=== PATIENT | female | born 1995 | race Caucasian/White ===

== ENCOUNTER 2023-04-06 19:48 | Emergency (ER) | payer MEDICAID ==
[~2023-04-06] VITALS: Ht 165.1 cm; Wt 103.4 kg
[2023-04-06 19:52] VITALS: BP 101/67
[2023-04-06] MEDS ORDERED: NACL 0.9% 1,000 ML IV ONE (20:10)
[2023-04-06] MEDS ORDERED: ONDANSETRON 4 MG/2 ML VIAL IVP ONE (20:10)
[2023-04-06 20:20] LABS: BILIRUBIN,URINE 1+ (NEGATIVE); BLOOD, URINE NEGATIVE (NEGATIVE); LEUKOCYTE ESTERASE ,URINE NEGATIVE (NEGATIVE); NITRITE, URINE POSITIVE (NEGATIVE); PH,URINE 6.5 (5.0-9.0); UGLUCOSE NEGATIVE (NEGATIVE)
--- NOTE | 2023-04-06 20:22 | NUR ---
PT IN BED 8
--- NOTE | 2023-04-06 20:22 | NUR ---
20G IV CATH PLACED IN L AC. LABS OBTAINED AND SENT
[2023-04-06 20:24] LABS: APPEARANCE,URINE SLIGHTLY CLOUDY (CLEAR); COLOR,URINE ORANGE (YELLOW)
--- NOTE | 2023-04-06 20:25 | NUR ---
L&D RN AT BEDSIDE FOR T
--- NOTE | 2023-04-06 20:27 | NUR ---
L&D NURSE OBTAINING FHT. PT TOLERATING PROCEDURE. NO DISTRESS NOTED.
[2023-04-06 20:32] LABS: BASOPHILS % (AUTO) 0.3 % (0.0-2.0); EOSINOPHILS % (AUTO) 0.3 % (0.0-4.0); HEMATOCRIT 29.3 % (36-48); HEMOGLOBIN 10.2 g/dL (12.0-16.0); LYMPHOCYTES # (AUTO) 1.6 K/uL (2.5-16.5); LYMPHOCYTES % (AUTO) 15.2 % (20.5-51.1); MEAN CORPUSCULAR HEMOGLOBIN 30 pg (27-31); MEAN CORPUSCULAR HGB CONC 35 g/dL (33-37); MEAN CORPUSCULAR VOLUME 84.7 fL (80-94); MONOCYTES # (AUTO) 0.8 K/uL (0.8-1.0); MONOCYTES % (AUTO) 7.7 % (1.7-9.3); NEUTROPHILS # (AUTO) 8.2 K/uL (1.8-7.7); NEUTROPHILS % (AUTO) 76.5 % (42.2-75.2); PLATELET COUNT (AUTO) 241 K/uL (140-450); RED BLOOD CELL COUNT(AUTO) 3.46 MIL/uL (4.20-5.40); RED CELL DISTRIBUTION WIDTH 13.2 % (11.6-13.7); WHITE BLOOD COUNT (AUTO) 10.7 K/uL (4.8-10.8)
--- NOTE | 2023-04-06 20:42 | NUR ---
NSR=[id number]. IVF INFUSING WELL. PT MEDICATED ORDERED.
[2023-04-06 21:03] LABS: ALBUMIN 2.7 g/dL (3.4-5.0); ANION GAP 15.9 (8-16); CARBON DIOXIDE 19.3 mmol/L (21-32); CREATININE 0.6 mg/dL (0.6-1.3); POTASSIUM 3.2 mmol/L (3.5-5.1); TOTAL BILIRUBIN 0.6 mg/dL (0.0-1.0)
--- NOTE | 2023-04-06 22:11 | NUR ---
PT SITTING UP IN BED. NASAL CONGESTION NOTED. PT BLOWING NOSE. NO DISTRESS NOTED.
[2023-04-06] MEDS ORDERED: POTASSIUM CHLORIDE 10 MEQ TABER PO ONE (22:25)
[2023-04-06] MEDS ORDERED: NITR100C7 PO (22:38)
[2023-04-06] MEDS ORDERED: LORA10TA19 PO (22:38)
[2023-04-06 22:54] VITALS: BP 119/61
--- NOTE | 2023-04-06 22:56 | NUR ---
PT MEDICATED WITH [facility]. H/L DC'D INTACT. PT TO F/U WITH [facility]. INSTRUCTIONS WERE REVIEWED FOR URI AND UTI. RX PROVIDED FOR ROMA CHAPIN. PT AKNOWLEDGE UNDERSTANDING INSTRUCTIONS. PT INSTRUCTED TO RETURN TO GO TO HER NEAREST ER, IF HER CONDTION WORSENS. PT AMBULATED OUT WITH STEADY GAIT IN STABLE CONDITION. TO TAKE PT HOME.
== END 2023-04-06 22:56 | disposition home or self-care (01) ==
LOC: MED 19:48
DX: O21.8 Other vomiting complicating pregnancy (principal); O99.513 Diseases of the respiratory system complicating pregnancy, third trimester; J06.9 Acute upper respiratory infection, unspecified; O23.43 Unspecified infection of urinary tract in pregnancy, third trimester; O99.283 Endocrine, nutritional and metabolic diseases complicating pregnancy, third trimester; E87.6 Hypokalemia; J45.909 Unspecified asthma, uncomplicated; O13.3 Gestational [pregnancy-induced] hypertension without significant proteinuria, third trimester; Z3A.32 32 weeks gestation of pregnancy; Z98.890 Other specified postprocedural states; Z79.899 Other long term (current) drug therapy; Z79.2 Long term (current) use of antibiotics
CPT/HCPCS: 36415; 80053; 81001; 81025; 83690; 85025; 87086; 96361; 96374; 99285; J2405; J7030

== ENCOUNTER 2023-07-08 02:53 | Emergency (ER) | payer MEDICAID ==
[~2023-07-08] VITALS: Ht 165.1 cm; Wt 99.8 kg
[~2023-07-08 02:53] MED LIST: LORA10TA19 PO; NITR100C7 PO
[2023-07-08 03:02] VITALS: BP 95/61; PULSE 61; RESP 19; TEMP 98.5; O2SAT 100
[2023-07-08] MEDS ORDERED: ONDANSETRON 4 MG/2 ML VIAL IVP ONE (03:30)
[2023-07-08] MEDS ORDERED: MORPHINE SULFATE 4 MG/ML SYR IVP ONE (03:30)
[2023-07-08 04:00] LABS: BASOPHILS % (AUTO) 0.5 % (0.0-2.0); EOSINOPHILS % (AUTO) 0.5 % (0.0-4.0); HEMATOCRIT 29.9 % (36-48); HEMOGLOBIN 9.5 g/dL (12.0-16.0); LYMPHOCYTES # (AUTO) 2.2 K/uL (2.5-16.5); LYMPHOCYTES % (AUTO) 35.9 % (20.5-51.1); MEAN CORPUSCULAR HEMOGLOBIN 24 pg (27-31); MEAN CORPUSCULAR HGB CONC 32 g/dL (33-37); MEAN CORPUSCULAR VOLUME 76.2 fL (80-94); MONOCYTES # (AUTO) 0.4 K/uL (0.8-1.0); NEUTROPHILS # (AUTO) 3.4 K/uL (1.8-7.7); NEUTROPHILS % (AUTO) 56.1 % (42.2-75.2); PLATELET COUNT (AUTO) 245 K/uL (140-450); RED BLOOD CELL COUNT(AUTO) 3.92 MIL/uL (4.20-5.40); RED CELL DISTRIBUTION WIDTH 17.1 % (11.6-13.7)
[2023-07-08 04:16] LABS: ALBUMIN 3.6 g/dL (3.4-5.0); ANION GAP 15.2 (8-16); CALCIUM 8.1 mg/dL (8.5-10.1); CARBON DIOXIDE 24.4 mmol/L (21-32); CREATININE 0.6 mg/dL (0.6-1.3); POTASSIUM 3.6 mmol/L (3.5-5.1); TOTAL BILIRUBIN 0.2 mg/dL (0.0-1.0)
[2023-07-08 05:41] LABS: APPEARANCE,URINE HAZY (CLEAR); BILIRUBIN,URINE NEGATIVE (NEGATIVE); BLOOD, URINE NEGATIVE (NEGATIVE); COLOR,URINE YELLOW (YELLOW); LEUKOCYTE ESTERASE ,URINE NEGATIVE (NEGATIVE); NITRITE, URINE POSITIVE (NEGATIVE); PH,URINE 6.5 (5.0-9.0); PROTEIN,URINE NEGATIVE (NEGATIVE); UGLUCOSE NEGATIVE (NEGATIVE)
[2023-07-08 05:49] LABS: BACTERIA,URINE 4+ /HPF (None Seen); RBC,URINE 0-5 /HPF (0-5); SQUAMOUS EPITHELIAL CELL,UR 4-10 (MOD) /LPF (0-3 (FEW)); WBC,URINE 0-5 /HPF (0-5)
[2023-07-08 06:25] VITALS: BP 106/58; PULSE 58; RESP 17; O2SAT 100
== END 2023-07-08 06:23 | disposition home or self-care (01) ==
LOC: MED 02:53
DX: K80.20 Calculus of gallbladder without cholecystitis without obstruction (principal); R11.2 Nausea with vomiting, unspecified; J45.909 Unspecified asthma, uncomplicated; Z79.899 Other long term (current) drug therapy; Z98.890 Other specified postprocedural states; Z98.84 Bariatric surgery status
CPT/HCPCS: 36415; 76705; 80053; 81001; 82150; 83690; 85025; 87086; 87210; 96374; 96375; 99285; J2270; J2405; Q0092

== ENCOUNTER 2023-07-08 20:06 | Emergency (ER) | payer MEDICAID | END 2023-07-08 20:25 | disposition left against medical advice (07) | LOC: MED 20:06 | DX: R10.9 Unspecified abdominal pain (principal); Z53.21 Procedure and treatment not carried out due to patient leaving prior to being seen by health care provider ==

== ENCOUNTER 2024-01-01 23:59 | Emergency (ER) | payer MEDICAID ==
[~2024-01-01] VITALS: Ht 165.1 cm; Wt 104.3 kg
[2024-01-02] VITALS: BP 120/73; PULSE 55; RESP 15; TEMP 97.9; O2SAT 98
[2024-01-02 00:47] VITALS: O2SAT 100
[2024-01-02 01:34] LABS: BASOPHILS % (AUTO) 0.6 % (0.0-2.0); EOSINOPHILS % (AUTO) 0.5 % (0.0-4.0); HEMATOCRIT 28.1 % (36-48); LYMPHOCYTES # (AUTO) 2.3 K/uL (2.5-16.5); LYMPHOCYTES % (AUTO) 30.7 % (20.5-51.1); MEAN CORPUSCULAR HEMOGLOBIN 24 pg (27-31); MEAN CORPUSCULAR HGB CONC 32 g/dL (33-37); MEAN CORPUSCULAR VOLUME 75.6 fL (80-94); MONOCYTES # (AUTO) 0.5 K/uL (0.8-1.0); MONOCYTES % (AUTO) 7.2 % (1.7-9.3); NEUTROPHILS # (AUTO) 4.6 K/uL (1.8-7.7); PLATELET COUNT (AUTO) 262 K/uL (140-450); RED BLOOD CELL COUNT(AUTO) 3.72 MIL/uL (4.20-5.40); RED CELL DISTRIBUTION WIDTH 15.8 % (11.6-13.7); WHITE BLOOD COUNT (AUTO) 7.5 K/uL (4.8-10.8)
[2024-01-02 01:51] LABS: ALBUMIN 3.4 g/dL (3.4-5.0); ANION GAP 11.5 (8-16); CALCIUM 8.2 mg/dL (8.5-10.1); CARBON DIOXIDE 26.1 mmol/L (21-32); CREATININE 0.7 mg/dL (0.6-1.3); POTASSIUM 3.6 mmol/L (3.5-5.1); TOTAL BILIRUBIN 0.1 mg/dL (0.0-1.0); TOTAL PROTEIN, SERUM 8.1 g/dL (6.4-8.2)
[2024-01-02 01:57] LABS: LACTIC ACID 0.9 mmol/L (0.4-2.0)
[2024-01-02 04:15] VITALS: O2SAT 100
[2024-01-02] MEDS: NACL 0.9% 1,000 ML IV ONE (04:33)
[2024-01-02] MEDS: ONDANSETRON 4 MG/2 ML VIAL IVP ONE (04:34)
[2024-01-02 04:35] VITALS: BP 119/71; PULSE 74; RESP 12; O2SAT 100
[2024-01-02] MEDS: MORPHINE SULFATE 4 MG/ML SYR IVP ONE ×2 (04:41→05:33)
[2024-01-03] MEDS ORDERED: CEPH-588 PO (06:27)
== END 2024-01-02 05:39 | disposition home or self-care (01) ==
LOC: MED 23:59
DX: K80.20 Calculus of gallbladder without cholecystitis without obstruction (principal); J45.909 Unspecified asthma, uncomplicated; I10 Essential (primary) hypertension; Z79.899 Other long term (current) drug therapy
CPT/HCPCS: 36415; 76705; 80053; 83605; 83690; 85025; 87040; 96361; 96374; 96375; 99285; J2270; J2405; J7030

== ENCOUNTER 2024-01-02 20:27 | Emergency (ER) | payer MEDICAID ==
[~2024-01-02] VITALS: Ht 165.1 cm; Wt 104.3 kg
[2024-01-02 21:23] VITALS: BP 109/66; PULSE 86; RESP 22; TEMP 99; O2SAT 100
[2024-01-02 23:06] LABS: BASOPHILS % (AUTO) 0.6 % (0.0-2.0); EOSINOPHILS % (AUTO) 0.7 % (0.0-4.0); HEMOGLOBIN 9.1 g/dL (12.0-16.0); LYMPHOCYTES # (AUTO) 2.8 K/uL (2.5-16.5); LYMPHOCYTES % (AUTO) 42.5 % (20.5-51.1); MEAN CORPUSCULAR HEMOGLOBIN 25 pg (27-31); MEAN CORPUSCULAR HGB CONC 33 g/dL (33-37); MEAN CORPUSCULAR VOLUME 75.6 fL (80-94); MONOCYTES # (AUTO) 0.4 K/uL (0.8-1.0); NEUTROPHILS # (AUTO) 3.3 K/uL (1.8-7.7); NEUTROPHILS % (AUTO) 50.2 % (42.2-75.2); PLATELET COUNT (AUTO) 287 K/uL (140-450); WHITE BLOOD COUNT (AUTO) 6.6 K/uL (4.8-10.8)
[2024-01-02 23:09] VITALS: TEMP 99
[2024-01-02] MEDS: MORPHINE SULFATE 4 MG/ML SYR IVP ONE (23:12)
[2024-01-02 23:20] LABS: ANION GAP 10.3 (8-16); CALCIUM 8.1 mg/dL (8.5-10.1); CARBON DIOXIDE 27.5 mmol/L (21-32); CREATININE 0.6 mg/dL (0.6-1.3); POTASSIUM 3.8 mmol/L (3.5-5.1)
[2024-01-02] MEDS: NACL 0.9% 1,000 ML IV ONE (23:24)
[2024-01-02 23:27] LABS: ALBUMIN 3.5 g/dL (3.4-5.0); TOTAL BILIRUBIN 0.2 mg/dL (0.0-1.0); TOTAL PROTEIN, SERUM 8.5 g/dL (6.4-8.2)
[2024-01-03 00:14] LABS: APPEARANCE,URINE CLEAR (CLEAR); BILIRUBIN,URINE NEGATIVE (NEGATIVE); BLOOD, URINE NEGATIVE (NEGATIVE); COLOR,URINE YELLOW (YELLOW); LEUKOCYTE ESTERASE ,URINE 1+ (NEGATIVE); NITRITE, URINE NEGATIVE (NEGATIVE); PROTEIN,URINE NEGATIVE (NEGATIVE); UGLUCOSE NEGATIVE (NEGATIVE); UROBILINOGEN,URINE 0.2 EU/dL (0.2 - 1)
[2024-01-03 00:34] LABS: BACTERIA,URINE >30 (MANY) /HPF (None Seen); MUCUS,URINE 1+ /LPF (None Seen); RBC,URINE 0-5 /HPF (0-5); SQUAMOUS EPITHELIAL CELL,UR 0-3 (FEW) /LPF (0-3 (FEW))
[2024-01-03] MEDS: cephALEXin 500 MG CAP PO ONE (01:06)
[2024-01-03 03:42] VITALS: O2SAT 100
[2024-01-03] MEDS: cefTRIAXone 2,000 MG in DEXTROSE 5% 100 ML IV ONE (05:05)
[2024-01-03] MEDS ORDERED: cefTRIAXone 2,000 MG VIAL ONE (06:14)
[2024-01-03 06:17] VITALS: O2SAT 98
[2024-01-03] MEDS ORDERED: CEPH-588 PO (06:27)
[2024-01-03 06:56] VITALS: BP 108/51; PULSE 71; RESP 14; O2SAT 98
[2024-01-03] MEDS: MORPHINE SULFATE 4 MG/ML SYR IVP ONE (07:09)
== END 2024-01-03 07:14 | disposition home or self-care (01) ==
LOC: MED 20:27
DX: K80.70 Calculus of gallbladder and bile duct without cholecystitis without obstruction (principal); N39.0 Urinary tract infection, site not specified; I10 Essential (primary) hypertension; J45.909 Unspecified asthma, uncomplicated
CPT/HCPCS: 36415; 80048; 80076; 81001; 83690; 84703; 85025; 87040; 87086; 96361; 96365; 96375; 96376; 99285; J0696; J2270; J7030